=== PATIENT | female | born 1930 | race Caucasian/White ===

== ENCOUNTER 2019-03-27 15:17 | Emergency (ER) | payer MEDICARE, OTHER ==
--- NOTE | 2019-03-27 16:18 | EDM.PDOC ---
ED HPI GENERAL MEDICAL PROBLEM - General Chief Complaint: General Stated Complaint: BLOOD PRESSURE HIGH Time Seen by Provider: 03/27/19 15:25 Source of Information: Reports: Patient History Limitations: Reports: No Limitations - History of Present Illness INITIAL COMMENTS - FREE TEXT/NARRATIVE: Patient presented to the ED because of an elevated BP. She denies any headache, chest pain,dyspnea or edema. She also c/o cough and cold symptoms for 2 days. left side rig area Pain Score (Numeric/FACES): 7 - Related Data Allergies Allergy/AdvReac Type Severity Reaction Status Date / Time Penicillins Allergy Airway Verified 05/04/13 17:47 Tightness Home Meds: Home Meds Acetaminophen/HYDROcodone [[place] 325-5 MG] 1 tab PO Q6H PRN #8 tab 05/04/13 [Rx] Furosemide [Lasix] 0 mg PO DAILY 05/04/13 [History] Lisinopril 20 mg PO DAILY 05/04/13 [History] Lovastatin [Altoprev] 20 mg PO DAILY 05/04/13 [History] Metoprolol Succinate [Toprol XL 100mg] 100 mg PO BEDTIME 05/04/13 [History] Warfarin [Coumadin] 3 mg PO DAILY 05/04/13 [History] Past Medical History Cardiovascular History: Reports: Hypertension, Other (See Below) Other Cardiovascular History: artifical valve Social & Family History - Tobacco Use Smoking Status *Q: Former Smoker Used Tobacco, but Quit: Yes Month/Year Tobacco Last Used: 1974 ED ROS GENERAL - Review of Systems Review Of Systems: See Below Constitutional: Reports: No Symptoms HEENT: Reports: No Symptoms Respiratory: Reports: Cough. Denies: Shortness of Breath, Sputum Cardiovascular: Reports: No Symptoms Endocrine: Reports: No Symptoms GI/Abdominal: Reports: No Symptoms : Reports: No Symptoms Musculoskeletal: Reports: No Symptoms Skin: Reports: No Symptoms Neurological: Reports: No Symptoms Psychiatric: Reports: No Symptoms Hematologic/Lymphatic: Reports: No Symptoms ED EXAM, GENERAL - Physical Exam Exam: See Below Exam Limited By: No Limitations General Appearance: Alert, WD/WN, No Apparent Distress Eye Exam: Bilateral Eye: PERRL Ears: Normal External Exam, Normal Canal, Hearing Grossly Normal Nose: Normal Inspection, Normal Mucosa, No Blood Throat/Mouth: Normal Inspection, Normal Lips, Normal Teeth, Normal Gums, No Airway Compromise Head: Atraumatic, Normocephalic Neck: Normal Inspection, Supple, Non-Tender, Full Range of Motion Respiratory/Chest: No Respiratory Distress, Lungs Clear, Normal Breath Sounds, No Accessory Muscle Use, Chest Non-Tender Cardiovascular: Normal Peripheral Pulses, Regular Rate, Rhythm, No Edema, No Gallop, No JVD, No Murmur, No Rub GI/Abdominal: Normal Bowel Sounds, Soft, Non-Tender, No Organomegaly, No Distention, No Abnormal Bruit, No Mass Course - Vital Signs Text/Narrative:: reassurance increase amlodipine fr9on 2.5 mg to 5 mg po qday Last Recorded V/S: Last Vital Signs Temp 36.7 C 03/27/19 15:17 Pulse 66 03/27/19 16:10 Resp 18 03/27/19 15:17 BP 173/51 H 03/27/19 16:10 Pulse Ox 98 03/27/19 15:17 Departure - Departure Time of Disposition: 16:10 Disposition: Home, Self-Care 01 Condition: Good Clinical Impression: Hypertension, URI (upper respiratory infection) - Discharge Information Instructions: Upper Respiratory Infection, Adult, [id number], Hypertension Referrals: Andree Richardson, [facility] [Primary Care Provider] - Forms: ED Department Discharge Additional Instructions: please read discharge instructions on high blood pressure and URI start taking tomorrow, amlodipine 5 mg once daily record your BP an hour after taking your BP meds, record it for a week and show it to your doctor during your next doctors visit return to the ER if your BP is more than 185/115(below this value you don't need to go to the ED) take tylenol 1000 mg every 8 hours as needed for your back pain increase oral fluids for your common cold
== END 2019-03-27 16:25 | disposition home or self-care (01) ==
LOC: FB.ED 15:17
DX: I10 Essential (primary) hypertension (principal); J06.9 Acute upper respiratory infection, unspecified; Z88.0 Allergy status to penicillin; Z87.891 Personal history of nicotine dependence; Z79.899 Other long term (current) drug therapy
CPT/HCPCS: 99283